=== PATIENT | male | born 1940 | race African-American/Black ===

== ENCOUNTER → 2016-11-19 | Outpatient (CLI) | payer MEDICARE, OTHER ==
[~2016-11-19] MED LIST: IOHEXOL-300 100 ML BOTTLE ONE
== END | disposition home or self-care (01) ==
LOC: CT 10:16
PROVIDERS: ATTEND Urology
DX: N20.0 Calculus of kidney (principal); K76.0 Fatty (change of) liver, not elsewhere classified
CPT/HCPCS: 74178; Q9967

== ENCOUNTER → 2016-11-26 | Outpatient (CLI) | payer MEDICARE, OTHER | END | disposition home or self-care (01) | LOC: RAD 10:16 | PROVIDERS: ATTEND Specialist | DX: N20.0 Calculus of kidney (principal) | CPT/HCPCS: 74000 ==

== ENCOUNTER → 2017-01-28 | Outpatient (CLI) | payer MEDICARE, OTHER | END | disposition home or self-care (01) | LOC: RAD 09:03 | PROVIDERS: ATTEND Urology | DX: N28.89 Other specified disorders of kidney and ureter (principal); N20.0 Calculus of kidney | CPT/HCPCS: 74000 ==

== ENCOUNTER → 2017-02-11 | Outpatient (CLI) | payer MEDICARE, OTHER | END | disposition home or self-care (01) | LOC: RAD 10:04 | PROVIDERS: ATTEND Urology | DX: N20.0 Calculus of kidney (principal) | CPT/HCPCS: 74018 ==

== ENCOUNTER 2021-08-11 07:25 | Inpatient (IN) | payer MEDICARE, OTHER ==
[2021-08-11] VITALS (12 sets, daily range): BP systolic 130–170; BP diastolic 79–91
[~2021-08-11] VITALS: Ht 172.7 cm; Wt 82.2 kg
[2021-08-11] MEDS ORDERED: LIDOCAINE HCL 1% 10 MG/ML 10ML VIAL ONE (07:53)
[2021-08-11] MEDS ORDERED: ATROPINE SULFATE 1MG/10ML SYR ONE (07:53)
[2021-08-11] MEDS ORDERED: FENTANYL CITRATE/PF 50MCG/ML 2ML VIAL ONE ×2 (07:53→09:33)
[2021-08-11] MEDS ORDERED: GENTAMICIN/NS IRRIGATION 500 ML IR ONE (07:53)
[2021-08-11] MEDS ORDERED: MIDAZOLAM HCL 2 MG/2 ML VIAL ONE ×2 (07:53→09:13)
[2021-08-11] MEDS ORDERED: CEFAZOLIN SODIUM 1000MG/VIAL ONE (07:54)
[2021-08-11] MEDS ORDERED: SEMA0.25 SQ (08:32)
[2021-08-11] MEDS ORDERED: EMPA25TA PO (08:32)
[2021-08-11] MEDS ORDERED: METF-416 PO (08:32)
[2021-08-11] MEDS ORDERED: AMLO5TAB88 PO (08:32)
[2021-08-11] MEDS ORDERED: GLIM2TAB30 PO (08:32)
[2021-08-11] MEDS ORDERED: SACU1TAB MT (08:32)
[2021-08-11] MEDS ORDERED: FURO40TA5 PO (08:32)
[2021-08-11] MEDS ORDERED: DORZ10DR12 EACHEYE (08:32)
[2021-08-11] MEDS ORDERED: ASPI-1497 PO (08:32)
[2021-08-11] MEDS ORDERED: GENTAMICIN SULF 40MG/ML 2ML VIAL ONE (09:32)
[2021-08-11] MEDS ORDERED: HYDROCODONE/ACETAMINOPHEN 5/325MG TABLET PO PRN (10:15)
[2021-08-11] MEDS ORDERED: MORPHINE SULFATE 2 MG/ML CPJ (NOT FOR IM USE) IV PRN (10:15)
[2021-08-11] MEDS ORDERED: NALOXONE HCL 0.4MG/ML VIAL IV PRN (11:45)
[2021-08-11] MEDS ORDERED: HYDRALAZINE 20MG/ML VIAL IV SCH (12:30)
[2021-08-11] MEDS: SACUBITRIL/VALSARTAN 24MG/26MG TABLET PO SCH ×2 (13:56→21:54)
[2021-08-11] MEDS ORDERED: CEFAZOLIN SODIUM 1000MG/VIAL IV SCH (14:00)
[2021-08-11] MEDS ORDERED: DEXTROSE 50% WATER 50ML SYRINGE IV PRN (15:15)
[2021-08-11] MEDS: AMLODIPINE 5MG TABLET PO SCH (16:30)
[2021-08-11] MEDS: CEFAZOLIN 1000MG PREMIX 50 ML IV SCH (16:30)
[2021-08-11] MEDS: BLOOD SUGAR DIAGNOSTIC STRIP TEST SCH ×2 (16:31→21:54)
[2021-08-11] MEDS: INSULIN LISPRO 100 UNITS/ML SUBCUT SCH ×2 (17:10→21:00)
[2021-08-11 17:53] LABS: CLARITY URINE CLEAR (CLEAR); COLOR URINE YELLOW (YELLOW); KETONES URINE NEGATIVE (NEGATIVE); LEUKOCYTE ESTERASE URINE NEGATIVE (NEGATIVE); NITRITE URINE NEGATIVE (NEGATIVE); OCCULT BLOOD URINE NEGATIVE (NEGATIVE); PH URINE 7.5 (4.5-8.0); PROTEIN URINE NEGATIVE (NEGATIVE); SPECIFIC GRAVITY URINE 1.009 (1.005-1.030); UROBILINOGEN URINE 0.2 E.U./dL (0.2-1.0)
[2021-08-11] MEDS: CARVEDILOL 6.25 MG TABLET PO SCH (21:54)
[2021-08-12] VITALS (14 sets, daily range): BP systolic 143–169; BP diastolic 73–99
[2021-08-12] MEDS: CEFAZOLIN 1000MG PREMIX 50 ML IV SCH ×3 (01:21→16:57)
[2021-08-12 05:30] LABS: BASOPHILS % 0.4 % (0.0-2.0); HEMATOCRIT. 42.8 % (42.0-52.0); HEMOGLOBIN. 14.7 g/dL (14.0-18.0); LYMPHOCYTES % 23.2 % (20.0-50.0); MEAN CORPUSCULAR HEMOGLOBIN 28.5 pg (28.0-32.0); MEAN CORPUSCULAR VOLUME 83.2 fL (80.0-94.0); MEAN PLATELET VOLUME 9.4 fl (7.4-10.4); MONOCYTES % 7.9 % (2.0-8.0); NEUTROPHILS % 66.5 % (40.0-76.0); PLATELET 140 x1000/uL (130-400); RED BLOOD CELL COUNT 5.15 mill/uL (4.7-6.1); RED CELL DISTRIBUTION WIDTH 17.2 % (11.6-14.6)
[2021-08-12 05:48] LABS: CHLORIDE 105 mEq/L (98-107)
[2021-08-12] MEDS: BLOOD SUGAR DIAGNOSTIC STRIP TEST SCH ×3 (07:19→16:50)
[2021-08-12] MEDS: SACUBITRIL/VALSARTAN 24MG/26MG TABLET PO SCH (09:00)
[2021-08-12] MEDS ORDERED: ASPIRIN 81MG EC TABLET PO SCH (09:00)
[2021-08-12] MEDS: CARVEDILOL 6.25 MG TABLET PO SCH (09:16)
[2021-08-12] MEDS: AMLODIPINE 5MG TABLET PO SCH (09:17)
[2021-08-12] MEDS: INSULIN LISPRO 100 UNITS/ML SUBCUT SCH ×2 (09:25→13:00)
[2021-08-12] MEDS ORDERED: MAGNESIUM HYDROXIDE 400MG/5ML 30ML UDC PO NR (12:00)
[2021-08-12] MEDS ORDERED: AMLODIPINE 5MG TABLET PO NR (16:30)
== END 2021-08-12 19:05 | disposition home or self-care (01) | DRG 244 ==
LOC: CCL 07:25 → 5EST 07:26
PROVIDERS: ADMIT Thoracic Surgery (Cardiothoracic Vascular Surgery); ATTEND Thoracic Surgery (Cardiothoracic Vascular Surgery)
PROC: 02H63JZ Insertion of Pacemaker Lead into Right Atrium, Percutaneous Approach (ICD-10-PCS; principal; 2021-08-11)
PROC: 02HK3JZ Insertion of Pacemaker Lead into Right Ventricle, Percutaneous Approach (ICD-10-PCS; 2021-08-11)
PROC: 0JH606Z Insertion of Pacemaker, Dual Chamber into Chest Subcutaneous Tissue and Fascia, Open Approach (ICD-10-PCS; 2021-08-11)
DX: I44.2 Atrioventricular block, complete (principal); I25.10 Atherosclerotic heart disease of native coronary artery without angina pectoris; E78.5 Hyperlipidemia, unspecified; I10 Essential (primary) hypertension; I34.0 Nonrheumatic mitral (valve) insufficiency; Z20.822 Contact with and (suspected) exposure to COVID-19; R00.1 Bradycardia, unspecified; Z79.84 Long term (current) use of oral hypoglycemic drugs; Z79.899 Other long term (current) drug therapy; Z79.82 Long term (current) use of aspirin; Z95.1 Presence of aortocoronary bypass graft; E11.9 Type 2 diabetes mellitus without complications; Z95.5 Presence of coronary angioplasty implant and graft
CPT/HCPCS: 33208; 36415; 71045; 80048; 81003; 82962; 85025; 87426; 93005; C1785; C1898; C9803; J0360; J0461; J0690; J1580; J1815; J2250; J3010; J3490